=== PATIENT | male | born 1985 | race Asian ===

== ENCOUNTER 2018-09-13 22:03 | Emergency (ER) | payer OTHER ==
[~2018-09-13] VITALS: Ht 167.6 cm; Wt 58.5 kg
[2018-09-13 22:08] VITALS: BP 102/63; Ht 167.6 cm; Wt 58.5 kg
== END 2018-09-13 23:24 | disposition home or self-care (01) ==
LOC: ED 22:03
DX: S01.111A Laceration without foreign body of right eyelid and periocular area, initial encounter (principal); Z98.890 Other specified postprocedural states; W51.XXXA Accidental striking against or bumped into by another person, initial encounter; Y93.67 Activity, basketball; Y92.89 Other specified places as the place of occurrence of the external cause; Y99.8 Other external cause status
CPT/HCPCS: J2001